=== PATIENT | female | born 1985 | race African-American/Black ===

== ENCOUNTER → 2016-07-10 | Outpatient (CLI) | payer OTHER ==
[~2016-07-10] MED LIST: AMOXICILLIN500 M1 PO; NO MEDICATIONS; PHENERGAN25 MG PO
--- NOTE | ~2016-07-10 | CR58 ---
[facility]. [facility] A Service of [facility] & [facility] RADIOLOGY TEXT RESULTS PATIENT: NEAL ANAND LOCATION: [facility] : 81 UNIT #: [id number] AGE: [address]: Kimmie Lockwood SEX: F ORDER DR: [id number] [address] [address] [id number] O MR#: [id number] Acc #: [id number] NAME: NEAL ANAND : 1985 SEX: F STUDY DATE/TIME: 07/10/2016 13:41 UNIT: [facility] ROOM: STUDY DESCRIPTION: CR Cervical Spine 2 or 3 Views Attending Physician: Kimmie Lockwood A.P.R.N. Referring Physician: Kimmie Lockwood A.P.R.N. Ordering Physician: Kimmie Lockwood A.P.R.N. Primary Care Physician: iKmmie Lockwood A.P.R.N. MEDICAL IMAGING REPORT This report is preliminary unless electronic signature is present. EXAM Cervical spine series dated 07/10/2016 COMPARISON Cervical spine series dated 05/24/2014 HISTORY Muscle spasms for the last two months. FINDINGS Four views of the cervical spine were obtained. Frontal, lateral, swimmers, open mouth C1-2 and odontoid tip views were obtained. No acute displaced fracture or subluxation. Anterior endplate osteophytes are noted at C4-5. Pre and paravertebral soft tissues and C1-2 junctions are intact. Dictated by... Lorraine Marin M.D. THIS IS AN ELECTRONICALLY VERIFIED REPORT Lorraine Marin M.D. at 07/11/2016 10:28 AM CPR/rnr TD: 07/10/2016 19:59 JOB #: [id number] MEDICAL IMAGING REPORT
--- NOTE | ~2016-07-10 | CR181 ---
[facility]. [facility] A Service of [facility] & [facility] RADIOLOGY TEXT RESULTS PATIENT: NEAL ANAND LOCATION: [facility] : 81 UNIT #: [id number] AGE: [address]: Kimmie Lockwood SEX: F ORDER DR: [id number] [address] [address] [id number] O MR#: [id number] Acc #: [id number] NAME: NEAL ANAND. : 1985 SEX: F STUDY DATE/TIME: 07/10/2016 13:41 UNIT: [facility] ROOM: STUDY DESCRIPTION: CR Lumbar Spine 2 or 3 Views Attending Physician: Kimmie Lockwood A.P.R.N. Referring Physician: Kimmie Lockwood A.P.R.N. Ordering Physician: Kimmie Lockwood A.P.R.N. Primary Care Physician: Kimmie Lockwood A.P.R.N. MEDICAL IMAGING REPORT This report is preliminary unless electronic signature is present. EXAM Lumbar spine series dated 07/10/2016 COMPARISON Lumbar spine series dated 05/24/2014. HISTORY Muscle spasms for the last 2 months. FINDINGS 3 views of the lumbar spine were obtained. No acute displaced fracture or subluxation. Pedicles are intact. Tiny anterior endplate osteophytes are noted in the lumbar spine. Pre and paravertebral soft tissues are unremarkable. Dictated by... Lorraine Marin M.D. THIS IS AN ELECTRONICALLY VERIFIED REPORT Lorraine Marin M.D. at 07/11/2016 10:28 AM CPR/rnr TD: 07/10/2016 19:54 JOB #: [id number] MEDICAL IMAGING REPORT
== END | disposition home or self-care (01) ==
LOC: SRAD 13:35
DX: M54.2 Cervicalgia (principal); M54.5 Low back pain
CPT/HCPCS: 72040; 72100